=== PATIENT | female | born 1990 | race Caucasian/White ===

== ENCOUNTER 2020-07-10 08:19 | Emergency (ER) | payer BC ==
[~2020-07-10] VITALS: Ht 162.6 cm; Wt 86.4 kg
[2020-07-10 08:27] VITALS: BP 130/87
[2020-07-10] MEDS ORDERED: ibuprofen tablet 400 MG TABLET PO ONE (08:40)
[2020-07-10] MEDS ORDERED: acetaminophen 325mg tablet PO ONE (08:40)
== END 2020-07-10 09:43 | disposition home or self-care (01) ==
LOC: ER 08:21
DX: S93.432A Sprain of tibiofibular ligament of left ankle, initial encounter (principal); Z88.0 Allergy status to penicillin; Z88.2 Allergy status to sulfonamides; Z79.899 Other long term (current) drug therapy; X50.1XXA Overexertion from prolonged static or awkward postures, initial encounter; Y93.89 Activity, other specified; Y92.89 Other specified places as the place of occurrence of the external cause; Y99.8 Other external cause status
CPT/HCPCS: 73610; 73630; 99284